=== PATIENT | male | born 1990 | race African-American/Black ===

== ENCOUNTER 2017-03-08 22:28 | Emergency (ER) | payer SELFPAY ==
[2017-03-08] MEDS ORDERED: ONDANSETRON HCL INJ/PF 4 MG/2 ML SDV IV ONE (22:56)
[2017-03-09] MEDS ORDERED: ONDANSETRON ODT 4 MG TAB (6 TAB/DSPK) PO PRN (00:03)
--- NOTE | 2017-03-09 00:05 | ER Document Report ---
ED General - General Chief Complaint: Nausea/Vomiting Stated Complaint: VOMITING Time Seen by Provider: 03/08/17 23:55 Notes: Patient is a pleasant 26-year-old male who presents with complaint of vomiting once after eating salad and some broccoli. Says he feels as if it does upset his stomach. He had no abdominal pain. He feels well and has had no further vomiting since then. No fevers. No diarrhea. He has no other complaints at this time. TRAVEL OUTSIDE OF THE [place] IN LAST 30 DAYS: No - Related Data Allergies/Adverse Reactions: No Known Allergies Allergy (Verified 03/08/17 22:50) Past Medical History - Social History Smoking Status: Never Smoker Frequency of alcohol use: None Drug Abuse: None Family History: Reviewed & Not Pertinent Renal/ Medical History: Denies: Hx Peritoneal Dialysis Surgical Hx: Negative - Immunizations Hx Diphtheria, Pertussis, Tetanus Vaccination: Yes Review of Systems - Review of Systems Notes: My Normal Review Basic REVIEW OF SYSTEMS: CONSTITUTIONAL : Denies fever, chills, or sweats. Denies recent illness. RESPIRATORY: Denies cough, cold, or chest congestion. Denies shortness of breath, difficulty breathing, or wheezing. GASTROINTESTINAL: Denies abdominal pain. Vomiting GENITOURINARY: Denies difficulty urinating, painful urination, burning, frequency, or blood in urine. FEMALE GENITOURINARY: Denies vaginal bleeding, abnormal or irregular periods. LMP: MUSCULOSKELETAL: Denies neck or back pain or joint pain or swelling. SKIN: Denies rash or skin lesions.lands. NEUROLOGICAL: Denies altered mental status or loss of consciousness. Denies headache. Denies weakness or paralysis or loss of use of either side. Denies problems with gait or speech. Denies sensory or motor loss. ALL OTHER SYSTEMS REVIEWED AND NEGATIVE. Physical Exam - Vital signs Vitals: Temp Pulse Resp BP Pulse Ox 98.5 F 51 L 18 132/84 H 100 03/08/17 22:50 03/08/17 22:50 03/08/17 22:50 03/08/17 22:50 03/08/17 22:50 - Notes Notes: General Appearance: Well nourished, alert, cooperative, no acute distress, no obvious discomfort. Vitals: reviewed, See vital signs table. Head: no swelling or tenderness to the head Eyes: PERRL, EOMI, Conjuctiva clear Mouth: No decreasd moisture Abdomen: Normal BS, soft, No rigidity, No abdominal tenderness, No guarding, no rebound, no abdominal masses, no organomegaly Extremities: strength 5/5 in all extremities, good pulses in all extremities, no swelling or tenderness in the extremities, no edema. Skin: warm, dry, appropriate color, no rash Neuro: speech clear, oriented x 3, normal affect, responds appropriately to questions. Course - Re-evaluation Re-evalutation: 03/09/17 06:11 Patient's exam is totally benign. He no longer has nausea. He looks well. He wants to go home. I feel he is safe to be discharged home. He never had any abdominal pain. Encouraged to return to ER if he has intractable recurrent vomiting, any abdominal pain, or fevers. Patient agrees with plan and will be discharged home. Dictation of this chart was performed using voice recognition software; therefore, there may be some unintended grammatical errors. - Vital Signs Vital signs: Temp Pulse Resp BP Pulse Ox 98.4 F 53 L 16 126/78 H 100 03/09/17 00:16 03/09/17 00:16 03/09/17 00:16 03/09/17 00:16 03/09/17 00:16 Discharge - Discharge Clinical Impression: Vomiting Qualifiers: Vomiting type: unspecified Vomiting Intractability: non-intractable Nausea presence: with nausea Qualified Code(s): R11.2 - Nausea with vomiting, unspecified Condition: Good Disposition: HOME, SELF-CARE Additional Instructions: Please take the Zofran as needed for nausea not to exceed once every 4 hours. Please return to the ER immediately if you have intractable vomiting, any abdominal pain, fevers, or if you feel unwell.
[2017-03-09 00:18] VITALS: BP 126/78
== END 2017-03-09 00:17 | disposition home or self-care (01) ==
LOC: ER 22:28
DX: R11.2 Nausea with vomiting, unspecified (principal)
CPT/HCPCS: 36415; 80053; 85025; 99283

== ENCOUNTER → 2017-11-29 | Outpatient (CLI) | payer OTHER ==
--- NOTE | 2017-11-29 20:53 | XCELERA REPORT ---
[address] [address] Transthoracic Echocardiogram Report Name: MINDY HENRY Age: 27 yrs Gender: Male : 1990 Patient Status: Outpatient Patient Location: [facility] Study Date: 11/29/2017 01:00 PM Height: 66 in Weight: 143 lb BSA: 1.7 m2 Reason For Study: MURMUR Ordering Physician: LEROY HUGHES Performed By: Edmund Solomon Interpretation Summary suspicious of a PFO/ASD, if murmur is audible , would send out for GALA with contrast . Otherwise echo is normal. MMode/2D Measurements & Calculations RVDd: 2.3 cm LVIDd: 5.1 cm FS: 43.4 % Ao root diam: 2.4 cm IVSd: 0.51 cm LVIDs: 2.9 cm EDV(Teich): 124.6 ml LVPWd: 0.76 cm ESV(Teich): 32.0 ml Ao root area: 4.5 cm2 EF(Teich): 74.3 % Doppler Measurements & Calculations MV E max guillermo: MV dec slope: Ao V2 max: LV V1 max P.6 cm/sec 157.4 cm/sec 4.7 mmHg MV A max guillermo: 473.2 cm/sec2 Ao max PG: LV V1 max: 75.4 cm/sec MV dec time: 9.9 mmHg 108.4 cm/sec MV E/A: 1.6 0.25 sec PA V2 max: PI end-d guillermo: TR max guillermo: 139.4 cm/sec 96.4 cm/sec 246.0 cm/sec PA max P.8 mmHg TR max P.5 mmHg Left Ventricle The left ventricle is normal in size, thickness and function. LV EF is 70%. Doppler measurements suggest normal left ventricular diastolic function. The left ventricular wall motion is normal. There is no thrombus. Right Ventricle The right ventricle is normal in size, thickness and function. The right ventricular systolic function is normal. Atria The right atrium is normal. The left atrial size is normal. A patent foramen ovale is suspected. recommend GALA with bubble contrast to r/o if heart murmur is audible. Mitral Valve The mitral valve is normal in structure and function. There is no mitral annular calcification. There is no evidence of mitral valve prolapse. There is no mitral valve stenosis. There is a trace amount of mitral regurgitation. Aortic Valve The aortic valve is trileaflet. The aortic valve opens well. There is no aortic valvular vegetation. There is no aortic valve stenosis. No aortic regurgitation is present. Tricuspid Valve The tricuspid is normal in structure and function. There is no tricuspid valve prolapse. There is no tricuspid stenosis. There is a trace or physiologic amount of tricuspid regurgitation. Pulmonic Valve There is a mild amount of pulmonic regurgitation. Great Vessels The aortic root is normal size. Effusions Minimal pericardial effusion. I WMSI = 1.00 % Normal = 100 Segments Size X - Cannot 1 - Normal 2 - 3 - Akinetic4 - 1-2 small Interpret Hypokinetic Dyskinetic 3-5 moderate 5 - 6-14 large Aneurysmal 15-16 diffuse : LEROY HUGHES > Jimbo Dias
== END ==
LOC: SP 12:47
PROVIDERS: ATTEND Family Medicine
DX: R01.1 Cardiac murmur, unspecified (principal)
CPT/HCPCS: 93306